=== PATIENT | male | born 1975 | race Two or more races ===

== ENCOUNTER 2021-03-22 20:01 | Emergency (ER) | payer SELFPAY ==
[~2021-03-22] VITALS: Ht 165.1 cm; Wt 68.0 kg
--- NOTE | 2021-03-22 23:54 | PHYS DOC ---
Past Medical History Past Surgical History: No Surgical History General Adult EDM: Chief Complaint: FLANK PAIN HPI: HPI: Patient is a 45 year old male who presents with right testicular swelling and right lower quadrant pain and nausea starting this morning. States that his testicle swell up very quickly and stayed that way all day. He had this happen once before, but he is not sure what happened that time. He says he was given some pills to take. He has been vomiting throughout the day. Denies any fever/chills. No dysuria, urgency, frequency. No penile discharge. No bloody stools or diarrhea. Review of Systems: Review of Systems: Constitutional: Denies fever or chills. [] Eyes: Denies change in visual acuity. [] HENT: Denies nasal congestion or sore throat. [] Respiratory: Denies cough or shortness of breath. [] Cardiovascular: Denies chest pain or edema. [] GI: Positive right lower quadrant pain. nausea, vomiting, bloody stools or diarrhea. [] : Right testicular swelling. [] Musculoskeletal: Denies back pain or joint pain. [] Integument: Denies rash. [] Neurologic: Denies headache, focal weakness or sensory changes. [] Endocrine: Denies polyuria or polydipsia. [] Lymphatic: Denies swollen glands. [] Psychiatric: Denies depression or anxiety. [] Heart Score: C/O Chest Pain: No Risk Factors: Risk Factors: DM, Current or recent (<one month) smoker, HTN, HLP, family history of CAD, obesity. Risk Scores: Score 0 - 3: 2.5% MACE over next 6 weeks - Discharge Home Score 4 - 6: 20.3% MACE over next 6 weeks - Admit for Clinical Observation Score 7 - 10: 72.7% MACE over next 6 weeks - Early Invasive Strategies Allergies: Allergies: Allergies Coded Allergies Type Severity Reaction Last Updated Verified No Known Drug Allergies 03/22/21 No Physical Exam: PE: Constitutional: Appears acutely uncomfortable. Well developed. [] HENT: Normocephalic, atraumatic, bilateral external ears normal, oropharynx moist, no oral exudates, nose normal. [] Eyes: PERRLA, EOMI, conjunctiva normal, no discharge. [] Neck: Normal range of motion, no tenderness, supple, no stridor. [] Cardiovascular:Heart rate regular rhythm, no murmur [] Lungs & Thorax: Bilateral breath sounds clear to auscultation [] Abdomen: Right scrotum with large amount of bowel present. Hernia reduced with constant pressure over a few seconds. Pain improved. Continues to have some RLQ tenderness to palpation. [] Skin: Warm, dry, no erythema, no rash. [] Extremities: No tenderness, no cyanosis, no clubbing, ROM intact, no edema. [] Neurologic: Alert and oriented X 3, normal motor function, normal sensory function, no focal deficits noted. [] Psychologic: Affect normal, judgement normal, mood normal. [] Current Patient Data: Vital Signs: Vital Signs Date Time Temp Pulse Resp B/P (MAP) Pulse Ox O2 Delivery O2 Flow Rate FiO2 03/22/21 22:08 98.5 66 18 123/80 100 Room Air 98.5 EKG: EKG: [] Radiology/Procedures: Radiology/Procedures: [] Impression: [facility] [address] [place] [address] IMAGING REPORT Signed PATIENT: JOEY ORTEGA ACCOUNT: [id number] : 1975 LOCATION: ER AGE: 45 SEX: M EXAM STATUS: REG ER ORD. PHYSICIAN: JOÃO HOGUE MD REASON: LARGE R INGUINAL HERNIA S/P REDUCTION;OMNI 300, 75ML PROCEDURE: CT ABD PELV W/ IV CONTRST ONLY PQRS Compliance Statement: One or more of the following individualized dose reduction techniques were utilized for this examination: 1. Automated exposure control 2. Adjustment of the mA and/or kV according to patient size 3. Use of iterative reconstruction technique CT ABDOMEN+PELVIS W Clinical Indication: Reason: LARGE R INGUINAL HERNIA S/P REDUCTION; Comparison: None. Technique: Helical CT imaging of the abdomen and pelvis is performed after 75 cc of Omnipaque 300 IV contrast. Oral contrast not administered. Findings: There is mild bilateral dependent atelectasis. Cardiac size normal. The liver, gallbladder, spleen, pancreas, adrenal glands, abdominal aorta, and kidneys are normal. The stomach is unremarkable. Much of the small bowel is decompressed. The terminal ileum is mildly dilated measuring up to 2.8 cm in diameter and demon strates feces sign. There is no wall thickening. The appearance suggests stasis. The appendix is normal caliber. There is no periappendiceal inflammation. Distal colon diverticulosis. Free fluid along the right paracolic gutter inferior to the right hepatic lobe. There is moderate pelvic free fluid. There is no colon wall thickening. The urinary bladder is mostly decompressed accentuating the wall thickness. Prostate size normal. There is mild fluid in the right inguinal canal, incompletely imaged. There is probable right inguinal hernia, coronal image 15. No acute bone abnormality. IMPRESSION: 1. Moderate pelvic free fluid. Fluid along the right paracolic gutter. There is fluid in right inguinal hernia, incompletely imaged. 2. The terminal ileum is mildly dilated and demonstrates feces sign suggesting stasis. There is no evidence of obstruction or enteritis. 3. Distal colon diverticulosis. Electronically signed by: Lenin Cheatham MD (03/23/2021 1:17 AM) [facility] DICTATED and SIGNED BY: LENIN CHEATHAM MD DATE: 03/23/21 [id number] 0 Course & Med Decision Making: Course & Med Decision Making Pertinent Labs and Imaging studies reviewed. (See chart for details) Patient 45-year-old male who presents with right testicular swelling, right lower quadrant pain, and vomiting starting abruptly this morning. Exam showed a right inguinal hernia with a large amount of bowel in the scrotum. It was easily reduced. Pain improved. Will obtain CT to ensure full reduction and no sequelae of hernia such as gangrene or obstruction. Labs including CBC, CMP, lactic acid ordered. Morphine for pain control. 2354 Hernia appears fully reduced on CT with findings of some free fluid in his pelvis and some stasis changes in the terminal ileum without out right obstruction. Labs without leukocytosis, lactic acidosis, and CMP unremarkable. Discussed the case with Dr. Sylvester of general surgery, who felt the patient would be suitable for close outpatient follow-up within the next 2 days. Patient made aware of this plan and is agreeable. 0213 Majo Disclaimer: Majo Disclaimer: This electronic medical record was generated, in whole or in part, using a voice recognition dictation system. Departure Departure Impression: Primary Impression: Right inguinal hernia Disposition: HOME / SELF CARE / HOMELESS Condition: STABLE Referrals: NO PCP (PCP) SILAS SYLVESTER MD Please call the office for Dr. Sylvester to schedule an appointment in the next 2 days. Patient Instructions: Inguinal Hernia, Adult Additional Instructions: You have a hernia in your right groin. This will need to be surgically repaired. Call Dr. Sylvester's office to schedule an appointment. He wants to see you by Sunday of this week. If the swelling in your testicle returns and does not go away please return to the emergency department for reevaluation. JOÃO HOGUE MD Mar 22, 2021 23:54
[2021-03-23] MEDS ORDERED: ONDANSETRON PF 4 MG/2 ML VIAL. IVP ONE
[2021-03-23] MEDS ORDERED: MORPHINE SULFATE 4 MG/ML INJ. IVP ONE
[2021-03-23 00:24] LABS: BASO # 0.1 x10^3/uL (0.0-0.2); BASO % 1 % (0-3); EOS # 0.5 x10^3/uL (0.0-0.7); EOS % 5 % (0-3); HEMOGLOBIN 13.3 g/dL (13.0-17.5); LYMPH # 2.8 x10^3/uL (1.0-4.8); LYMPH % 31 % (24-48); MEAN CORPUSCULAR HEMOGLOBIN 28 pg (25-35); MEAN CORPUSCULAR HGB CONC 33 g/dL (31-37); MEAN CORPUSCULAR VOLUME 83 fL (79-100); MONO # 0.5 x10^3/uL (0.0-1.1); MONO % 5 % (0-9); NEUT # 5.1 x10^3/uL (1.8-7.7); NEUT % 57 % (31-73); PLATELET COUNT 261 x10^3/uL (140-400); RED CELL DISTRIBUTION WIDTH 14.8 % (11.5-14.5); WHITE BLOOD COUNT 8.9 x10^3/uL (4.0-11.0)
[2021-03-23 00:25] LABS: BILIRUBIN,URINE NEGATIVE (NEG); CLARITY,URINE CLEAR; COLOR,URINE YELLOW; NITRITE,URINE NEGATIVE (NEG); PROTEIN,URINE NEGATIVE (NEG-TRACE); UROBILINOGEN,URINE 0.2 mg/dL (0.2 mg/dL)
[2021-03-23] MEDS ORDERED: IOHEXOL 300 MG/ML 100ML VIAL. IV ONE (00:30)
[2021-03-23 00:33] LABS: BACTERIA,URINE 0 /HPF (0-FEW); RBC,URINE 0 /HPF (0-2)
[2021-03-23 00:36] LABS: CREATININE 0.9 mg/dL (0.7-1.3); GFR 90.4; POTASSIUM 4.3 mmol/L (3.5-5.1)
[2021-03-23 00:41] LABS: ALBUMIN 3.5 g/dL (3.4-5.0); ALBUMIN/GLOBULIN RATIO 1.1 (1.0-1.7); TOTAL BILIRUBIN 0.3 mg/dL (0.2-1.0); TOTAL PROTEIN 6.6 g/dL (6.4-8.2)
[2021-03-23] MEDS ORDERED: CONTRAST GIVEN. MC PRN (00:45)
--- NOTE | 2021-03-23 01:19 | RAD ---
PQRS Compliance Statement: One or more of the following individualized dose reduction techniques were utilized for this examinat ion: 1. Automated exposure control 2. Adjustment of the mA and/or kV according to patient size 3. Use of iterative reconstruction technique CT ABDOMEN+PELVIS W Clinical Indication: Reason: LARGE R INGUINAL HERNIA S/P REDUCTION; Comparison: None. Technique: Helical CT imaging of the abdomen and pelvis is performed after 75 cc of Omnipaque 300 IV contrast. Oral contrast not administered. Findings: There is mild bilateral dependent atelectasis. Cardiac size normal. The liver, gallbladder, spleen, pancreas, adrenal glands, abdominal aorta, and kidneys are normal. The stomach is unremarkable. Much of the small bowel is decompressed. The terminal ileum is mildly di lated measuring up to 2.8 cm in diameter and demonstrates feces sign. There is no wall thickening. Th e appearance suggests stasis. The appendix is normal caliber. There is no periappendiceal inflammatio n. Distal colon diverticulosis. Free fluid along the right paracolic gutter inferior to the right hep atic lobe. There is moderate pelvic free fluid. There is no colon wall thickening. The urinary bladder is mostly decompressed accentuating the wall thickness. Prostate size normal. The re is mild fluid in the right inguinal canal, incompletely imaged. There is probable right inguinal h ernia, coronal image 15. No acute bone abnormality. IMPRESSION: 1. Moderate pelvic free fluid. Fluid along the right paracolic gutter. There is fluid in right ingui nal hernia, incompletely imaged. 2. The terminal ileum is mildly dilated and demonstrates feces sign suggesting stasis. There is no e vidence of obstruction or enteritis. 3. Distal colon diverticulosis. Electronically signed by: Lenin Cheatham MD (03/23/2021 1:17 AM) [facility]
[2021-03-23 02:00] VITALS: BP 129/82
[2021-03-23] MEDS ORDERED: IOHEXOL 300 MG/ML 100ML VIAL. ONE (06:12)
== END 2021-03-23 02:31 | disposition home or self-care (01) ==
LOC: ER 20:01
DX: K40.90 Unilateral inguinal hernia, without obstruction or gangrene, not specified as recurrent (principal)
CPT/HCPCS: 36415; 74177; 80053; 81001; 83605; 85025; 96374; 96375; 99285; J2270; J2405; Q9967

== ENCOUNTER 2021-05-02 19:31 | Emergency (ER) | payer SELFPAY ==
[~2021-05-02] VITALS: Ht 160 cm; Wt 56.0 kg
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
[2021-05-02] MEDS ORDERED: ACETAMINOPHEN 500 MG TABLET PO ONE (22:15)
[2021-05-02] MEDS ORDERED: IBUPROFEN 400 MG TABLET. PO ONE (22:15)
[2021-05-02] MEDS ORDERED: NAPR-682 PO (22:24)
[2021-05-02 22:30] VITALS: BP 120/80
--- NOTE | 2021-05-03 00:42 | RAD ---
Three-view right elbow dated 05/02/2021. No comparison available. CLINICAL INDICATION: Pain. FINDINGS: 3 views right elbow show normal bony alignment. No displaced fracture. No periostitis or bone destruc tion. No acute osseous or articular abnormality. No apparent fat pad elevation to suggest joint effus ion. IMPRESSION: No acute radiographic abnormality. Electronically signed by: Skip Gray MD (05/03/2021 12:39 AM) [employer]
--- NOTE | 2021-05-03 00:42 | RAD ---
Single view pelvis and single view right hip dated 05/02/2021. No comparison available. Clinical indication: Pain after fall. FINDINGS: AP view pelvis and single view right hip show normal bony alignment. No displaced fracture. No acute osseous or articular abnormality. No periostitis or bone destruction. Mild spondylotic changes of low er lumbar spine. IMPRESSION: No acute radiographic abnormality. Electronically signed by: Skip Gray MD (05/03/2021 12:40 AM) [facility]
== END 2021-05-02 22:45 | disposition home or self-care (01) ==
LOC: ER 19:31
DX: S50.01XA Contusion of right elbow, initial encounter (principal); S70.01XA Contusion of right hip, initial encounter; F17.200 Nicotine dependence, unspecified, uncomplicated; V19.49XA Pedal cycle driver injured in collision with other motor vehicles in traffic accident, initial encounter; Y92.488 Other paved roadways as the place of occurrence of the external cause; Y93.89 Activity, other specified; Y99.8 Other external cause status
CPT/HCPCS: 73080; 73501; 99284